=== PATIENT | female | born 1970 | race Asian ===

== ENCOUNTER → 2017-01-16 | Day surgery (SDC) | payer OTHER | END | disposition home or self-care (01) | LOC: FMAMMOTONE 08:46 | PROVIDERS: ATTEND Surgery | PROC: 0HBT3ZX Excision of Right Breast, Percutaneous Approach, Diagnostic (ICD-10-PCS; principal; 2017-01-16) | DX: Z53.8 Procedure and treatment not carried out for other reasons (principal); R92.1 Mammographic calcification found on diagnostic imaging of breast | CPT/HCPCS: 19081 ==

== ENCOUNTER 2017-02-15 07:52 | Day surgery (SDC) | payer OTHER ==
[2017-02-14 10:14] VITALS: BMI 27.9
[2017-02-15] MEDS ORDERED: MIDAZOLAM HCL 2 MG/2 ML SINGLE DOSE VIAL ONE ×2 (12:24→12:52)
[2017-02-15] MEDS ORDERED: ceFAZolin SODIUM 1 GM VIAL ONE (12:54)
[2017-02-15] MEDS ORDERED: ceFAZolin SODIUM 1 GM VIAL IVPB ONE (13:02)
[2017-02-15] MEDS ORDERED: KETAMINE HCL 200 MG/20 ML VIAL ONE (13:10)
[2017-02-15] MEDS ORDERED: KETOROLAC TROMETHAMINE 30 MG/1 ML VIAL ONE (13:10)
[2017-02-15] MEDS ORDERED: LIDOCAINE HCL 1%, 10 MG/ML (20ML VIAL) INF ONE (13:11)
[2017-02-15] MEDS ORDERED: ONDANSETRON 4 MG/2 ML VIAL IVPUSH PRN (14:34)
[2017-02-15] MEDS ORDERED: LACTATED RINGERS SOLUTION 1,000 ML IV SCH (14:45)
[2017-02-15] MEDS ORDERED: oxyCODONE HCL 5 MG TABLET PO PRN (15:49)
[2017-02-15 17:22] VITALS: BP 138/72; PULSE 70; TEMP 97.8
--- NOTE | 2017-02-16 19:23 | OP ---
DATE OF OPERATION: 02/15/2017 PREOPERATIVE DIAGNOSIS: Right breast microcalcification. POSTOPERATIVE DIAGNOSIS: Right breast microcalcification. PROCEDURE: Right breast wire-localized excision. SURGEON: Gloria Montero MD ANESTHESIA: Local, IV sedation turned to general. ESTIMATED BLOOD LOSS: 50 mL DRAINS: None. COMPLICATIONS: None. This was a sterile procedure. INDICATIONS: Patient presented with a screening mammography that noted a cluster of microcalcifications with a core of calcifications with a nodule, which a biopsy was recommended by the radiologist. I felt this was likely benign. However, I did put her on the stereotactic table. I was unable to see it, and after discussion with the patient, decided to go ahead and try to attempt an excision of this area, that was very far back posteriorly, directly behind the nipple-areolar complex on the right breast. The procedure was discussed with her, and all the questions answered. PROCEDURE IN DETAIL: Patient was brought to [facility] in [place] and taken to [facility] where a wire was used to localize the calcifications that were far posterior, could not really be seen on the MLO view, only on exaggerated CC view. After the wire was placed, she was then brought up to the operating room, and after IV sedation and IV antibiotics, the right breast was prepped and draped in the usual sterile fashion. The prior incision in the upper inner right breast was again used, and a 15 blade was used to make the cut. The wire was used as a guide to get down to the area of interest. This was excised en bloc and sent as a right breast excision of calcifications. These did not show any calcification within them. The calcifications were supposed to be posterior and inferior to this wire, which I took the entire tissue down to pectoralis muscle. This was also sent with the excisional biopsy. There was no other area I could really excise on her. Therefore, I will await the pathology prior to deciding further management. She tolerated the procedure well. Hemostasis was assured with electrocautery. The parenchyma approximated with interrupted 2-0 Vicryl. Skin approximated with interrupted 3-0 Vicryl and running 4-0 Prolene. A sterile dressing with Tegaderm and 4 x 4's applied. She tolerated the procedure well, was taken to Recovery in good condition. GLORIA MONTERO M.D. [id number]
--- NOTE | 2017-02-19 15:22 | PATH ---
Surgical Pathology Report Patient Name: MADHU HIGGINS [facility]. Rec. #: [id number] /Age/Gender: 1970 (Age: 46) / F Account: [id number] Location: [facility] Taken: 02/15/2017 Received: 02/15/2017 Reported: 02/19/2017 Physicians: Gloria Gonzalez M.D. Specimen(s) Received A: RIGHT BREAST EXCISION OF CALCIFICATIONS B: RIGHT BRAST EXICISION OF CALCIFICATIONS Clinical History Microcalcifications Final Diagnosis A. BREAST, RIGHT, EXCISION OF CALCIFICATIONS: FIBROCYSTIC CHANGE WITH EXTENSIVE SCLEROSING ADENOSIS, USUAL DUCTAL AND PAPILLARY HYPERPLASIA, DUCT DILATATION, CYSTS FORMATION WITH FOCAL CYST RUPTURE AND STROMAL FIBROSIS WITH ASSOCIATED MICROCALCIFICATIONS; FOCAL RADIAL SCAR AND INTRADUCTAL PAPILLOMA WITH SCLEROSIS AND USUAL DUCTAL HYPERPLASIA. FOCAL CHANGES MOST CONSISTENT WITH PRIOR BIOPSY SITE. B. BREAST, RIGHT, EXCISION OF CALCIFICATION: FIBROCYSTIC CHANGE WITH USUAL DUCTAL HYPERPLASIA, SCLEROSING ADENOSIS, DUCT DILATATION AND STROMAL FIBROSIS. Electronically Signed Oskar Mckeon M.D. Gross Description A. Received fresh on an [employer] labeled "right breast excision of calcifications" is a 5.7 x 5.0 x 1.6 cm irregular, unoriented portion of fibroadipose tissue with a needle localization wire present. There is no skin or nipple present. The specimen is inked blue and serially sectioned. Sectioning reveals abundant dense, white, focally firm fibrous tissue. There is a focus of hemorrhage, possibly consistent with a previous biopsy site identified. The specimen is entirely and sequentially submitted in 15 cassettes (focus of hemorrhage in cassettes 7-10). Time to fixation: not indicated Total formalin fixation time: ~50h B. Received in formalin labeled "right breast excision of calcification" is a 3.5 x 2.7 x 1.0 cm irregular, unoriented portion of fibroadipose tissue. There is no needle localization wire present. There is no skin or nipple present. The specimen is inked blue and serially sectioned. The specimen is entirely and sequentially submitted in 6 cassettes. Time to fixation: not indicated Total formalin fixation time: ~74h DL/02/15/2017 saudi/02/15/2017
== END 2017-02-15 17:30 | disposition home or self-care (01) ==
LOC: JASU-SURG 07:52
PROVIDERS: ATTEND Surgery
PROC: 0HBT0ZX Excision of Right Breast, Open Approach, Diagnostic (ICD-10-PCS; principal; 2017-02-15 12:00)
DX: N60.11 Diffuse cystic mastopathy of right breast (principal)
CPT/HCPCS: 19281; 84703; 88307-TC; 94760

== ENCOUNTER 2024-02-17 04:47 | Day surgery (SDC) | payer OTHER ==
[2024-02-17] MEDS ORDERED: ROCURONIUM BROMIDE 50 MG/5 ML SYRINGE ONE (07:45)
[2024-02-17] MEDS ORDERED: MIDAZOLAM HCL 2 MG/2 ML SINGLE DOSE VIAL ONE (07:45)
[2024-02-17] MEDS ORDERED: PROPOFOL 20 ML ONE (07:49)
[2024-02-17] MEDS: ceFAZolin SODIUM 1 GM VIAL IVPB ONE (08:10)
[2024-02-17] MEDS ORDERED: ONDANSETRON 4 MG/2 ML VIAL ONE (09:05)
[2024-02-17] MEDS ORDERED: DEXAMETHASONE SOD PHOSPHATE 4 MG/1 ML VIAL ONE (09:05)
[2024-02-17] MEDS ORDERED: SUGAMMADEX SODIUM 200 MG/2 ML VIAL ONE (09:08)
[2024-02-17] MEDS ORDERED: ONDANSETRON 4 MG/2 ML VIAL IVPUSH PRN ×2 (09:36→09:55)
[2024-02-17] MEDS ORDERED: oxyCODONE HCL 5 MG TABLET PO PRN ×2 (09:55)
[2024-02-17] MEDS ORDERED: BISACODYL 5 MG TABLET.DR (FP) PO PRN (09:55)
[2024-02-17] MEDS ORDERED: SIMETHICONE 80 MG TAB.CHEW (FP) PO PRN (09:55)
[2024-02-17] MEDS ORDERED: DOCUSATE SODIUM 100 MG CAPSULE (FP) PO PRN (09:55)
[2024-02-17] MEDS: LACTATED RINGERS SOLUTION 1,000 ML IV SCH (10:49)
[2024-02-17 10:59] VITALS: RESP 18
[2024-02-17] MEDS ORDERED: ACETAMINOPHEN INJECTION 100 ML ONE (11:43)
[2024-02-17] MEDS ORDERED: SEVOFLURANE 250 ML BTL ONE (11:43)
[2024-02-17] MEDS: ATORVASTATIN CA 10 MG TABLET (FP) PO SCH (13:08)
[2024-02-17] MEDS: METHIMAZOLE 10 MG TABLET PO SCH (13:08)
[2024-02-17] MEDS: IBUPROFEN 800 MG/8 ML IJ IVPB PRN (13:59)
[2024-02-17] MEDS: CEFAZOLIN 1 GM in DEXTROSE 5%-WATER 100 ML IVPB SCH (16:11)
[2024-02-17 19:34] LABS: HEMATOCRIT 42.1 % (32.4-45.2); MCH 26.5 pg (25.7-33.7); MCHC 33.2 g/dl (32.0-36.0); MEAN PLT VOLUME 8.2 fl (7.5-11.1); PLATELET COUNT 334 10^3/uL (134-434); RBC 5.26 M/mm3 (3.60-5.2); RDW 13.9 % (11.6-15.6); WHITE BLOOD COUNT 10.4 K/mm3 (4.0-10.0)
[2024-02-17 19:44] LABS: BLOOD UREA NITROGEN 9.2 mg/dL (7-18)
[2024-02-17 19:47] LABS: CREATININE 1.1 mg/dL (0.55-1.3)
[2024-02-18] MEDS: ACETAMINOPHEN 325 MG TABLET (FP) PO PRN (06:16)
[2024-02-18 08:12] LABS: HEMATOCRIT 39.5 % (32.4-45.2); MCH 26.6 pg (25.7-33.7); MEAN CELL VOLUME 80.8 fl (80-96); MEAN PLT VOLUME 8.2 fl (7.5-11.1); PLATELET COUNT 301 10^3/uL (134-434); RBC 4.89 M/mm3 (3.60-5.2); RDW 14.1 % (11.6-15.6); WHITE BLOOD COUNT 9.4 K/mm3 (4.0-10.0)
[2024-02-18 08:36] LABS: POTASSIUM 3.7 mmol/L (3.5-5.1)
[2024-02-18 08:42] LABS: CREATININE 0.6 mg/dL (0.55-1.3)
[2024-02-18] MEDS: ENOXAPARIN NA (PORCINE) 40 MG/0.4 ML DISP.SYRIN SQ SCH (09:28)
[2024-02-18 09:45] VITALS: BP 107/68; PULSE 78; TEMP 98.4
== END 2024-02-18 10:20 | disposition home or self-care (01) ==
LOC: JASUSAT 04:47 → J3W 11:35 → JASUSAT 02-18 10:20
PROVIDERS: ATTEND Obstetrics & Gynecology
PROC: 8E0W4CZ Robotic Assisted Procedure of Trunk Region, Percutaneous Endoscopic Approach (ICD-10-PCS; 2024-02-17)
PROC: 0UT94ZZ Resection of Uterus, Percutaneous Endoscopic Approach (ICD-10-PCS; principal; 2024-02-17 07:30)
PROC: 0UT74ZZ Resection of Bilateral Fallopian Tubes, Percutaneous Endoscopic Approach (ICD-10-PCS; 2024-02-17 07:30)
DX: D25.0 Submucous leiomyoma of uterus (principal); N84.0 Polyp of corpus uteri; N83.8 Other noninflammatory disorders of ovary, fallopian tube and broad ligament; R87.810 Cervical high risk human papillomavirus (HPV) DNA test positive
CPT/HCPCS: 58571; S2900; 36415; 80048; 81025; 82962; 85027; 86850; 86900; 86901; 88305-TC; 88307-TC; 88341-TC; 88342-TC; 94010; 94760; J0131